=== PATIENT | female | born 1995 | race Caucasian/White ===

== ENCOUNTER 2018-09-27 08:28 | Emergency (ER) | payer BC ==
[~2018-09-27] VITALS: Ht 147.3 cm; Wt 69.1 kg
[~2018-09-27 08:28] MED LIST: IBUP-1561 PO; NITR-58 PO; SUMA25TA34 PO
[2018-09-27 08:34] VITALS: BP 131/60; PULSE 98; RESP 17; Ht 147.3 cm; Wt 69.1 kg
--- NOTE | 2018-09-27 09:32 | ERD ---
ER Documentation Chief Complaint Chief Complaint STABBING PAIN ON VAGINAL AREA, LOW ABD PAIN, BLOOD IN URINE HPI 22-year-old female is here with dysuria and urinary frequency and also one e pisode of hematuria. She also states she gets sharp pain in her vagina. She states the outside of her vagina looks normal. She denies any recent unprotected sex. No fever. No nausea or vomiting. ROS All systems reviewed and are negative except as per history of present illness. Medications Home Meds Active Scripts Ibuprofen* (Motrin*) 400 Mg Tab, 400 MG PO Q6, #30 TAB Prov:RYAN LUCIOIE Timi SUTTON 07/20/15 Reported Medications Sumatriptan Succinate* (Imitrex*) 25 Mg Tablet, 25 MG PO DAILY PRN for HEADACHE 09/28/13 Allergies Allergies: Coded Allergies: No Known Allergy (Unverified , 07/20/15) PMhx/Soc Medical and Surgical Hx: pt denies Medical Hx History of Surgery: Yes () Anesthesia Reaction: No Hx Neurological Disorder: No Hx Respiratory Disorders: No Hx Cardiac Disorders: No Hx Psychiatric Problems: No Hx Miscellaneous Medical Probl: No Hx Alcohol Use: No Hx Substance Use: No Hx Tobacco Use: No FmHx Family History: No diabetes Physical Exam Vitals Vital Signs Date Temp Pulse Resp B/P (MAP) Pulse Ox O2 O2 Flow FiO2 Time Delivery Rate 09/27/18 97.0 98 17 131/60 98 08:34 (83) Physical Exam INITIAL VITAL SIGNS: Reviewed by me GENERAL: Awake, alert and oriented x 4, well appearing, nontoxic, speaking in full sentences. No acute distress HEAD: Atraumatic RESPIRATORY: Clear to auscultation bilaterally. Symmetric chest wall rise. No wheezing or rales. No accessory muscle use. CV: Regular rate and rhythm. No murmurs, rubs, or gallops. ABDOMEN: Soft, non-distended. Nontender. Negative [place]. Negative McBurneys point tenderness. No CVA tenderness bilaterally. No guarding. No rebound. : Deffered. Results 24 hrs Laboratory Tests Test 09/27/18 09:15 09/27/18 09:16 Bedside Urine pH (LAB) 6.0 Bedside Urine Protein (LAB) 2+ Bedside Urine Glucose (UA) Negative Bedside Urine Ketones (LAB) Trace Bedside Urine Blood 3+ Bedside Urine Nitrite (LAB) Negative Bedside Urine Leukocyte Esterase (L Trace POC Beta HCG, Qualitative NEGATIVE Procedures/MDM Patient presents with dysuria hematuria and urinary frequency. Urine does have trace leukocytes as well as blood. Low suspicion for kidney stone at this time although possibility was discussed with the patient. No recent unprotected sex. No fever. No vomiting. Patient denies any vaginal rashes. Prescription for Macrobid given. Patient counseled regarding my diagnostic impression and care plan. Prior to discharge all questions answered. Pt agrees with treatment plan and understands strict return precautions. Pt is instructed to follow up with primary care provider within 24-48 hours. Precautionary instructions provided including instructions to return to the ER if not improving or for any worsening or changing symptoms or concerns. Departure Diagnosis: Primary Impression: Cystitis Condition: Stable DEWAYNE GAGNON PA-C Sep 27, 2018 09:32
== END 2018-09-27 09:45 | disposition home or self-care (01) ==
LOC: FTE 08:28
DX: N30.91 Cystitis, unspecified with hematuria (principal)
CPT/HCPCS: 81003; 81025; Z7502; 99283

== ENCOUNTER 2018-10-13 06:24 | Emergency (ER) | payer BC ==
[~2018-10-13] VITALS: Ht 154.9 cm; Wt 69.9 kg
[~2018-10-13 06:24] MED LIST changes: +ACET-141 PO; +IBUP-1542 PO; +TAMS-14 PO
[2018-10-13 06:29] VITALS: BP 135/84; PULSE 81; RESP 18; Ht 154.9 cm; Wt 69.9 kg
[2018-10-13] MEDS ORDERED: ONDANSETRON (ODT) 4 MG TAB ODT STA (06:50)
[2018-10-13] MEDS ORDERED: IBUPROFEN 800 MG TAB PO ONE (07:00)
== END 2018-10-13 08:29 | disposition home or self-care (01) ==
LOC: FTE 06:24
DX: N20.0 Calculus of kidney (principal)
CPT/HCPCS: 36415; 74176; 80053; 81001; 81025; 83690; 85025; Z7502; Z7610; 81003